=== PATIENT | female | born 1965 | race Caucasian/White ===

== ENCOUNTER → 2024-09-12 10:30 | Outpatient (CLI) | payer OTHER, SELFPAY ==
[2024-09-12 19:02] LABS: Hematocrit 41.8 % (36-46); Hemoglobin 14.2 g/dL (12.0-16.0); Mean Corpuscular Hemoglobin 30.7 PG (26-34); Mean Corpuscular Volume 90.4 fL (80-100); Platelet Count 257 X10^3/uL (150-400); Red Blood Cell Count 4.62 X10^6/uL (4.0-5.2); Red Cell Distribution Width 14.2 % (11.6-14.8); White Blood Cell Count 6.8 X10^3/uL (4.5-11.0)
[2024-09-12 19:10] LABS: Alanine Aminotransferase 23 IU/L (<35); Albumin 4.5 g/dL (3.5-5.0); Albumin Globulin Ratio 1.6 (1.0-2.8); Alkaline Phosphatase 47 U/L (38-126); Aspartate Aminotransferase 35 IU/L (14-36); BUN Creatinine Ratio 12.3 (6-22); Bilirubin Total 0.5 mg/dL (0.2-1.3); Blood Urea Nitrogen 10 mg/dL (7-17); Calcium 9.6 mg/dL (8.4-10.2); Carbon Dioxide 29 mmol/L (22-32); Chloride 103 mmol/L (98-107); Estimated Glomerular Filt Rate > 60 mL/min (>60); Globulin 2.8 g/dL (1.7-4.1); Glucose 91 mg/dL (80-110); HEMOLYSIS < 15 (0-50); Potassium 4.7 mmol/L (3.4-5.1); Sodium 138 mmol/L (137-145); Total Protein 7.3 g/dL (6.3-8.2)
[2024-09-12 19:41] LABS: TSH w/ Reflex to FT4 1.34 uIU/mL (0.47-4.68)
[2024-09-12 20:54] LABS: Adenovirus F 40/41 Not Detected (Not Detect); Astrovirus Not Detected (Not Detect); Campylobacter Not Detected (Not Detect); Clostridium difficile toxin AB Not Detected (Not Detect); Cryptosporidium Not Detected (Not Detect); Cyclospora cayetanensis Not Detected (Not Detect); Entamoeba histolytica Not Detected (Not Detect); Enteroaggregative E.coli Not Detected (Not Detect); Enteropathogenic E.coli Not Detected (Not Detect); Enterotoxigenic E.coli It/st Not Detected (Not Detect); Giardia lamblia Not Detected (Not Detect); Norovirus GI/GII Not Detected (Not Detect); Plesiomonsa shigelloides Not Detected (Not Detect); Rotavirus A Not Detected (Not Detect); Salmonella Not Detected (Not Detect); Sapovirus Not Detected (Not Detect); Shiga-like toxin-prod E.coli Not Detected (Not Detect); Shigella/Enteroinvasive E.coli Not Detected (Not Detect); Vibrio Not Detected (Not Detect); Vibrio cholerae Not Detected (Not Detect); Yersinia enterocolitica Not Detected (Not Detect)
== END ==
PROVIDERS: PCP Physician Assistant Medical; Visit Provider Physician Assistant Medical
DX: R19.7 Diarrhea, unspecified (principal)
CPT/HCPCS: 80053; 84443; 85027; 87507

== ENCOUNTER 2024-10-10 11:09 | Day surgery (SDC) | payer OTHER, SELFPAY ==
[2024-10-10 12:36] VITALS: BP 108/72; PULSE 79; RESP 18; TEMP 36.2; O2SAT 100
--- NOTE | 2024-10-10 13:25 | PM.HP.1 ---
History of Present Illness History of Present Illness Date Patient Seen: 10/10/24 Time Patient Seen: 13:25 Chief complaint: Screening Colonoscopy Narrative: 59-year-old woman here for 1st time screening colonoscopy. Recently diarrhea which is unexplained. Sister has a history of colonic polyps grandfather developed colorectal cancer. FORMERLY [facility], [facility]–1983 Social History Smoking Status: Never smoker Meds Home Medications and Allergies Home Medications Medication Instructions Recorded Confirmed Type sodium,potassium,mag sulfates 17.5 See Rx Instructions PO .COMPLEX 09/18/24 Rx gram-3.13 gram-1.6 gram oral soln #354 mL (Suprep Bowel Prep Kit) Allergies Allergy/AdvReac Type Severity Reaction Status Date / Time No Known Drug Allergies Allergy Unverified 09/05/24 12:39 Exam Vital Signs (past 8 hours): - 10/10/24 12:36 Temperature 97.2 F L Pulse Rate 79 Respiratory Rate 18 Blood Pressure 108/72 Pulse Oximetry 100 Oxygen Delivery Method Room Air Oxygen Delivery Method Room Air Narrative Exam Narrative: General adult woman alert oriented no acute distress Chest nonlabored respiration Extremities warm well perfused Assessment & Plan Assessment & Plan narrative: The patient requires colorectal screening and colonoscopy is recommended. Technical details were discussed. Risks, benefits, alternatives explained. Risks including but not limited to myocardial infarction, aspiration, bleeding, pain, missed lesion, incomplete examination, need for further radiographic studies, intestinal injury, and need for major abdominal surgery were discussed. All questions were answered to their satisfaction, and they are in agreement with this plan. Time-Based Coding :: [TOTAL MINUTES] spent with patient and on the chart (including review of chart, obtaining history, exam, reviewing outside data, placing orders, documenting exam and treatment plan, and counseling patient) on [DATE].
--- NOTE | 2024-10-10 13:28 | PM.OP.COLON ---
Operative Date/Time/Diagnoses Date of procedure: 10/10/24 Time of procedure: 13:28 Pre-op diagnosis: Colorectal screening Procedure & Clinicians Study performed: Aborted colonoscopy Same procedure as scheduled: Yes Indications: Colorectal screening Surgeon: Simon Hernández Procedure Notes Procedure in detail: The history and physical was performed/updated and the patient is ASA class is 2. The procedure was discussed in detail with the patient. Potential risks complications including infection, bleeding, missed diagnosis, perforation, need for surgery, and were explained. Their questions were answered and informed consent was obtained. Patient was brought to the procedure room and placed standard monitoring equipment. The patient's vital signs were monitored continuously throughout the entire procedure. Prior to starting time-out was performed. The patient was placed in the left lateral recumbent position. Procedural sedation was administered by anesthesia. Examination began with a thorough inspection of the perianal area there was no evidence of fissures, fistulae, external hemorrhoids or cutaneous malignancy. The colonoscopy scope was then placed into the anal canal and was advanced forward. The quality of the preparation was poor and inadequate for safe and accurate performance of the exam. The procedure was aborted. Post-procedure Plan for aftercare: Contact surgical clinic to reschedule with an alternative preparation. Disposition: same day surgery
[2024-10-10 13:45] VITALS: BP 87/59; PULSE 90; RESP 16; TEMP 36.3; O2SAT 98
[2024-10-10 13:47] VITALS: BP 93/64; PULSE 82; RESP 16; O2SAT 98
[2024-10-10 13:50] VITALS: BP 98/65; PULSE 83; RESP 16; O2SAT 97
[2024-10-10 13:57] VITALS: BP 110/62; PULSE 80; RESP 16; O2SAT 98
== END 2024-10-10 14:26 | disposition home or self-care (01) ==
PROVIDERS: PCP Physician Assistant Medical; Referring Provider Surgery; Visit Provider Surgery
PROC: 0DJD8ZZ Inspection of Lower Intestinal Tract, Via Natural or Artificial Opening Endoscopic (ICD-10-PCS; CPT 45378; principal; 2024-10-10 12:45)
DX: Z12.11 Encounter for screening for malignant neoplasm of colon (principal); Z53.09 Procedure and treatment not carried out because of other contraindication
CPT/HCPCS: 45378; J2704

== ENCOUNTER 2024-12-08 09:01 | Day surgery (SDC) | payer OTHER, SELFPAY ==
[2024-12-08 10:56] VITALS: BP 96/67; PULSE 109; RESP 16; TEMP 36.7; O2SAT 97
[2024-12-08] MEDS: SODIUM CHLORIDE 0.9% 1,000 ML 250 ML IV (11:10)
--- NOTE | 2024-12-08 11:32 | P.HP_ITS ---
History of Present Illness History of Present Illness Date Patient Seen: 12/08/24 Time Patient Seen: 11:32 Chief complaint: Screening Colonoscopy Narrative: 59-year-old white female no previous colon screening, has had some diarrhea which she attributes to stress, she has a positive family history of colon cancer. [facility] Social History Smoking Status: Never smoker alcohol intake: current Meds Home Medications and Allergies Home Medications Medication Instructions Recorded Confirmed Type No Known Home Medications 12/08/24 12/08/24 History Allergies Allergy/AdvReac Type Severity Reaction Status Date / Time No Known Drug Allergies Allergy Verified 12/08/24 10:48 Review of Systems Review of Systems ROS: Yes All systems reviewed with the patient and are negative except as otherwise documented Exam Vital Signs (past 8 hours): - 12/08/24 10:56 Temperature 98.1 F Pulse Rate 109 H Respiratory Rate 16 Blood Pressure 96/67 Pulse Oximetry 97 Oxygen Delivery Method Room Air Oxygen Delivery Method Room Air Narrative Exam Narrative: Gen: NAD, sitting comfortably in bed, appears well HEENT: Sclera are anicteric, head is normocephalic and atraumatic, trachea is midline. CV: RRR, no JVD Resp: clear to auscultation bilaterally, equal chest wall movement bilaterally Abd: soft, nontender, normoactive bowel sounds Ext: no edema, full range of motion Neuro: Cranial nerves II-XII grossly intact, no focal deficits Skin: No erythema or ecchymosis Assessment & Plan Assessment and plan (1) Change in stool: Status: Acute Assessment & Plan narrative: Patient presents for colonoscopy Risks, benefits, alternatives to colonoscopy explained, including but not limited to bowel perforation or other serious complication requiring surgery at less than 1 in 5000 colonoscopies, abdominal pain, cramping or bleeding and less than 1% of colonoscopies, and the chances that we find a diagnosis that would require further intervention of about 2%. Patient agrees to proceed. Time-Based Coding :: [TOTAL MINUTES] spent with patient and on the chart (including review of chart, obtaining history, exam, reviewing outside data, placing orders, documenting exam and treatment plan, and counseling patient) on [DATE]. [employer] Director Document charge(s): No
--- NOTE | 2024-12-08 11:55 | PM.OP.COLON ---
Operative Date/Time/Diagnoses Date of procedure: 12/08/24 Time of procedure: 11:55 Pre-op diagnosis: Diarrhea, colon screening Post-op diagnosis: same Procedure & Clinicians Study performed: Colonoscopy Same procedure as scheduled: Yes Indications: Colon screening, positive family history, diarrhea Surgeon: Obdulio Birmingham Procedure Notes SCOAP/Timeout: Performed Procedure in detail: Time-out was performed. Mac was induced. Patient was placed in left lateral decubitus position. The perineum was inspected without any gross abnormality. Lubricated pediatric colonoscope was inserted and advanced to the cecum. The terminal ileum was intubated. The colonoscope was withdrawn slowly inspecting the circumference of the colon. Very small polyps may have been missed, prep quality was adequate. Retroflexed view of the rectum showed small, non prolapsed nonbleeding internal hemorrhoids. The scope was withdrawn the patient was taken to PACU in good condition. Scope withdrawal time: 8 Sedation minutes: 12 Findings: internal hemorrhoids Specimen(s): none sent Complications: none Impression: normal colon Post-procedure Recommendations: Colonoscopy in 10 years Follow up: as needed Disposition: PACU
[2024-12-08 11:58] VITALS: BP 94/55; PULSE 87; RESP 13; TEMP 36.3; O2SAT 100
[2024-12-08 12:02] VITALS: BP 94/64; PULSE 98; RESP 15; O2SAT 100
== END 2024-12-08 12:15 | disposition home or self-care (01) ==
PROVIDERS: PCP Physician Assistant Medical; Referring Provider Surgery; Visit Provider Surgery
PROC: 0DJD8ZZ Inspection of Lower Intestinal Tract, Via Natural or Artificial Opening Endoscopic (ICD-10-PCS; CPT 45378; principal; 2024-12-08 11:15)
DX: R19.5 Other fecal abnormalities (principal); R19.7 Diarrhea, unspecified; Z80.0 Family history of malignant neoplasm of digestive organs; K64.8 Other hemorrhoids
CPT/HCPCS: 45378; J2704